=== PATIENT | female | born 1935 | race Caucasian/White ===

== ENCOUNTER 2017-08-25 19:56 | Emergency (ER) | payer MEDICAID, MEDICARE ==
[~2017-08-25] VITALS: Ht 162.6 cm; Wt 65.9 kg
[2017-08-25 20:06] VITALS: BP 149/69; TEMP 98.2
[2017-08-25] MEDS ORDERED: WALKER MC (22:10)
[2017-08-25 22:27] VITALS: PULSE 75
== END 2017-08-25 22:27 | disposition home or self-care (01) ==
LOC: COL.ER 19:56
DX: S93.401A Sprain of unspecified ligament of right ankle, initial encounter (principal); W01.0XXA Fall on same level from slipping, tripping and stumbling without subsequent striking against object, initial encounter; X50.0XXA Overexertion from strenuous movement or load, initial encounter; Y92.009 Unspecified place in unspecified non-institutional (private) residence as the place of occurrence of the external cause

== ENCOUNTER 2021-03-08 15:03 | Observation (INO) | payer MEDICARE, MEDICAID ==
[~2021-03-08] VITALS: Ht 160 cm; Wt 59.0 kg
[~2021-03-08 15:03] MED LIST: WALKER MC
[2021-03-08 15:58] LABS: BASO % 0.8 % (0.0-2.0); EOS # 0.1 (0.0-0.7); EOS % 2.5 % (0-4.0); GRAN # 3.1 (1.4-6.5); GRAN % 57.8 % (42.2-75.2); HEMATOCRIT 36.2 % (37.0-47.0); HEMOGLOBIN 11.8 g/dl (12.5-16.0); LYMPH # 1.5 (1.2-3.4); LYMPH % 28.9 % (20.0-51.0); MEAN CELL VOLUME 89 fl (80.0-100.0); MEAN CORPUSCULAR HEMOGLOBIN 29 pg (27.0-31.0); MEAN CORPUSCULAR HGB CONC 33 g/dl (33.0-37.0); MEAN PLATELET VOLUME 10.2 fl (7.4-10.4); MONO # 0.5 (0.1-0.6); MONO % 9.6 % (1.7-9.3); PLATELET COUNT 200 K/mm3 (130-400); RED BLOOD COUNT 4.07 M/mm3 (4.10-5.30); REDCELL DISTRIBUTION WIDTH-CV 13.9 % (11.5-14.5)
[2021-03-08 16:09] LABS: ALANINE AMINOTRANSFERASE 16 U/L (4-34); ALBUMIN 3.9 gm/dL (3.5-5.0); ALKALINE PHOSPHATASE 113 U/L (50-136); ANION GAP 5 mmol/L (7-16); AST,SGOT 21 U/L (15-37); BILIRUBIN,TOTAL 0.3 mg/dL (0.0-1.0); BLOOD UREA NITROGEN 14 mg/dL (7-17); CALCIUM 9.6 mg/dL (8.4-10.2); CARBON DIOXIDE 24 mmol/L (22-30); CHLORIDE 106 mmol/L (98-107); CREATININE, serum 0.54 (0.52-1.25); GLUCOSE 168 mg/dL (74-106); POTASSIUM 4.2 mmol/L (3.4-5.0); SODIUM 135 mmol/L (137-145); TOTAL PROTEIN 7.3 gm/dL (6.4-8.2)
[2021-03-08 16:21] LABS: TROPONIN-I < 0.012 ng/mL (0.000-0.035)
[2021-03-08 16:34] LABS: COLLECTION METHOD CLEAN CATCH
[2021-03-08 16:42] LABS: PH 5 (5-8); SQUAMOUS EPITHELIAL 0-2 /hpf; URINE APPEARANCE Clear; URINE BACTERIA None Seen /hpf; URINE BILIRUBIN Negative (NEGATIVE); URINE BLOOD Negative (NEGATIVE); URINE COLOR Straw; URINE GLUCOSE Negative (NEGATIVE); URINE KETONE Negative (NEGATIVE); URINE LEUKOCYTE ESTERASE Negative (NEGATIVE); URINE NITRATE Negative (NEGATIVE); URINE PROTEIN(semi-quant) Negative (NEGATIVE); URINE RBC None Seen /hpf; URINE UROBILINOGEN Negative (NEGATIVE)
[2021-03-08 17:15] LABS: PROTHROMBIN TIME 11.3 SECONDS (9.7-12.8)
[2021-03-08] MEDS ORDERED: ASPIRIN E.C. 8181 MG PO (19:37)
[2021-03-08] MEDS ORDERED: GLUCOPHAGE XR500 M1 PO (19:38)
[2021-03-08] MEDS ORDERED: MEVACOR 20M20 MG/TAB PO (19:38)
[2021-03-08 20:26] VITALS: BP 147/82; PULSE 80; TEMP 98.3
[2021-03-08 20:55] VITALS: BP 147/82; PULSE 80; TEMP 98.3
--- NOTE | 2021-03-08 21:00 | NUR ---
Admitted to medical floor from ER with blurred and double vision- daughter here with her while she gets admitted- pt denies any pain- Dr. Mcdaniels saw in ER-- has a eyepatch to wear as needed- will get MRI tomorrow. VSS. Right eye does not follow like the left eye does. Pt very pleasant, no confusion- tele on, Iv fluids of NS at 75cc/hr. Understands to call for assistance up to bathroom- bed alarm on.
[2021-03-09 01:45] VITALS: BP 167/75; PULSE 71; TEMP 98.4
[2021-03-09 05:00] VITALS: BP 157/86; PULSE 69; TEMP 98.2
--- NOTE | 2021-03-09 06:09 | NUR ---
No requests, VSS, Up to bathroom with assist every couple hours-voiding fine-- states still has double vision, npo now for MRI- patient aware.
[2021-03-09 06:22] LABS: BASO # 0.1 (0.0-0.2); BASO % 1.1 % (0.0-2.0); EOS # 0.1 (0.0-0.7); EOS % 2.6 % (0-4.0); GRAN # 2.5 (1.4-6.5); GRAN % 55.1 % (42.2-75.2); HEMOGLOBIN 10.9 g/dl (12.5-16.0); LYMPH # 1.3 (1.2-3.4); LYMPH % 29.3 % (20.0-51.0); MEAN CELL VOLUME 88 fl (80.0-100.0); MEAN CORPUSCULAR HEMOGLOBIN 29 pg (27.0-31.0); MEAN CORPUSCULAR HGB CONC 32 g/dl (33.0-37.0); MEAN PLATELET VOLUME 10.2 fl (7.4-10.4); MONO # 0.5 (0.1-0.6); MONO % 11.7 % (1.7-9.3); PLATELET COUNT 188 K/mm3 (130-400); REDCELL DISTRIBUTION WIDTH-CV 13.9 % (11.5-14.5)
[2021-03-09 06:28] LABS: HEMATOCRIT 33.6 % (37.0-47.0)
[2021-03-09 06:39] LABS: CALCIUM 8.9 mg/dL (8.4-10.2); CREATININE, serum 0.49 (0.52-1.25); POTASSIUM 3.9 mmol/L (3.4-5.0)
[2021-03-09 08:48] VITALS: BP 148/64; PULSE 68; TEMP 97.8
--- NOTE | 2021-03-09 10:34 | NUR ---
First visit from the channel cementer outsole machine. prayed with patient and her grandson. No other needs right now.
--- NOTE | 2021-03-09 11:16 | NUR ---
Assessment ocmpleted, alert/oriented ,vital signs tsable, denies pain or disomcomfort, still having visual changes/ double vision, scheduled for MRI brain today and ECHO, heart RRR/ SR on tele, lungs CTA/ no resp.difficulty, family present in the room, discussed plan of care, deny othe rneeds or concerns at thistime
[2021-03-09 11:20] VITALS: BP 133/40; PULSE 75; TEMP 98.5
[2021-03-09 13:15] LABS: IRON,SERUM 77 ug/dL (35-150)
[2021-03-09 13:25] LABS: TOTAL IRON BINDING CAPACITY 350 ug/dL (265-497)
--- NOTE | 2021-03-09 14:41 | NUR ---
SHAHEEN met with the patient and her daughter, Mitra (ph#[phone]), to discuss discharge plan. The patient lives alone in a fci complex in [place]. She was in [place] visiting and staying with her daughter Mitra. She reports independence with ADLs and has a cane and walker. The patient's PCP is Dr. Marissa Townsend in [place] and she receives her medications from [facility]. The patient does not have a DPOA-HC in EMR, but she states that she does have one completed and that the document is at home. She states that she believes she designated both of her daughters: Mitra and Natalia. Mitra was interested in obtaining a DPOA-HC form, in case they cannot get their hands on the one the patient has at home. SHAHEEN provided them with the form. Mitra reports that the plan is for the patient to come and stay with her in [place] for a few weeks before returning back to her apartment. Mitra reports that they have been trying to work on having the patient move up here with them, but that the patient really likes her independence. SHAHEEN discussed getting home health services started upon discharge. The patient and her daughter were interested in home health. SHAHEEN provided the patient with Medicare.gov's list of home health agencies that serve both [place] and [place]. The patient and Mitra plan to look over the list. SW to continue to follow. *Discharge plan: home with daughter and home health, will need to follow up on home health agency*
[2021-03-09 15:31] VITALS: BP 152/62; PULSE 75; TEMP 97.9
[2021-03-09] MEDS ORDERED: ELIQUIS 5MG PO ×2 (15:54)
[2021-03-09 20:31] VITALS: BP 129/55; PULSE 88; TEMP 98.8
--- NOTE | 2021-03-09 23:15 | NUR ---
Shift assessment completed. Patient very pleasant, A/O x 4. Patient reports still having blurred vision. Right eye does not follow directions well. Patient denies dizziness or headache. Denies N/V or SOB. VS stable. All scheduled meds given per DEC. Patient resting in bed comfortably at this time. Call light within reach. Patient denies any needs.
[2021-03-10 00:10] VITALS: BP 127/62; PULSE 85; TEMP 98.8
[2021-03-10 04:17] VITALS: BP 126/64; PULSE 74; TEMP 98.1
[2021-03-10 07:10] LABS: BASO % 0.7 % (0.0-2.0); EOS # 0.1 (0.0-0.7); EOS % 2.3 % (0-4.0); GRAN # 2.5 (1.4-6.5); GRAN % 58.3 % (42.2-75.2); HEMOGLOBIN 11.7 g/dl (12.5-16.0); LYMPH # 1.2 (1.2-3.4); LYMPH % 28.2 % (20.0-51.0); MEAN CELL VOLUME 88 fl (80.0-100.0); MEAN CORPUSCULAR HEMOGLOBIN 29 pg (27.0-31.0); MEAN CORPUSCULAR HGB CONC 33 g/dl (33.0-37.0); MEAN PLATELET VOLUME 10.2 fl (7.4-10.4); MONO # 0.4 (0.1-0.6); MONO % 10.3 % (1.7-9.3); PLATELET COUNT 198 K/mm3 (130-400); RED BLOOD COUNT 4.09 M/mm3 (4.10-5.30); REDCELL DISTRIBUTION WIDTH-CV 14.1 % (11.5-14.5)
[2021-03-10 07:25] LABS: CALCIUM 9.1 mg/dL (8.4-10.2); CREATININE, serum 0.54 (0.52-1.25)
[2021-03-10 07:34] VITALS: BP 131/73; PULSE 65; TEMP 97.7
[2021-03-10] MEDS ORDERED: GLUCOTROL 5M5 MG/TAB PO (10:14)
--- NOTE | 2021-03-10 10:45 | NUR ---
DISCONTINUED INT, REMOVED TELEMETRY FROM PATIENT. PATIENT TO DISCHARGE HOME LATER TODAY.
--- NOTE | 2021-03-10 12:59 | NUR ---
Outside Salesman attended clinical rounds with the team and patient to discharge home today with her daughter, here in [place]. SW met with patient and her daughter to follow up on home health services. Patient selected [facility]. SHAHEEN contacted Vicki at [facility] and referral/discharge orders. Vicki advised that they can accept patient for services. Discharge Plan: Home with Home Health.
--- NOTE | 2021-03-10 13:03 | NUR ---
DISCHARGE INSTRUCTIONS REVIEWED WITH PT AND FAMILY. QUESTIONS SOLICITED AND ANSWERED. PT LEFT UNIT AMBULATORY @ 1300.
== END 2021-03-10 13:00 | disposition home or self-care (01) ==
LOC: COL.ER 15:03 → MEDICAL 18:22
PROVIDERS: Nurse Practitioner Family; Physician Assistant; ADMIT Internal Medicine
DX: H53.2 Diplopia (principal); R26.81 Unsteadiness on feet; R51.9 Headache, unspecified; G58.8 Other specified mononeuropathies; M62.81 Muscle weakness (generalized); I10 Essential (primary) hypertension; E11.9 Type 2 diabetes mellitus without complications; E78.5 Hyperlipidemia, unspecified; I08.0 Rheumatic disorders of both mitral and aortic valves; I49.9 Cardiac arrhythmia, unspecified; G47.30 Sleep apnea, unspecified; R06.83 Snoring; Z91.19 Patient's noncompliance with other medical treatment and regimen; D64.9 Anemia, unspecified; Z79.82 Long term (current) use of aspirin; Z79.84 Long term (current) use of oral hypoglycemic drugs; Z79.899 Other long term (current) drug therapy
CPT/HCPCS: 99222-AI; 99232-AI; A9585; G0378; J1650; J1815; J7030; Q9967

== ENCOUNTER 2021-06-05 07:44 | Emergency (ER) | payer MEDICARE, MEDICAID ==
[~2021-06-05] VITALS: Ht 162.6 cm; Wt 61.4 kg
[~2021-06-05 07:44] MED LIST changes: +ASPIRIN E.C. 8181 MG PO; +ELIQUIS 5MG PO; +GLUCOPHAGE XR500 M1 PO; +GLUCOTROL 5M5 MG/TAB PO; +MEVACOR 20M20 MG/TAB PO
[2021-06-05 07:54] VITALS: TEMP 98.2
[2021-06-05 08:42] LABS: ALANINE AMINOTRANSFERASE 18 U/L (4-34); ALBUMIN 4.5 gm/dL (3.5-5.0); ALKALINE PHOSPHATASE 81 U/L (50-136); ANION GAP 7 mmol/L (7-16); AST,SGOT 28 U/L (15-37); BILIRUBIN,TOTAL 0.3 mg/dL (0.0-1.0); BLOOD UREA NITROGEN 17 mg/dL (7-17); CALCIUM 9.5 mg/dL (8.4-10.2); CARBON DIOXIDE 27 mmol/L (22-30); CHLORIDE 105 mmol/L (98-107); CREATININE, serum 0.57 (0.52-1.25); GLUCOSE 118 mg/dL (74-106); POTASSIUM 4.4 mmol/L (3.4-5.0); SODIUM 138 mmol/L (137-145)
[2021-06-05 08:43] LABS: BASO % 0.8 % (0.0-2.0); EOS # 0.1 (0.0-0.7); EOS % 1.9 % (0-4.0); GRAN # 3.1 (1.4-6.5); HEMATOCRIT 37.5 % (37.0-47.0); HEMOGLOBIN 12.5 g/dl (12.5-16.0); LYMPH # 1.4 (1.2-3.4); LYMPH % 26.8 % (20.0-51.0); MEAN CELL VOLUME 87 fl (80.0-100.0); MEAN CORPUSCULAR HEMOGLOBIN 29 pg (27.0-31.0); MEAN CORPUSCULAR HGB CONC 33 g/dl (33.0-37.0); MEAN PLATELET VOLUME 10.1 fl (7.4-10.4); MONO # 0.5 (0.1-0.6); MONO % 9.3 % (1.7-9.3); PLATELET COUNT 211 K/mm3 (130-400); RED BLOOD COUNT 4.29 M/mm3 (4.10-5.30); REDCELL DISTRIBUTION WIDTH-CV 13.9 % (11.5-14.5)
[2021-06-05 08:56] LABS: TROPONIN-I < 0.012 ng/mL (0.000-0.035)
[2021-06-05] MEDS ORDERED: PREDNISONE20 MG PO (09:26)
[2021-06-05 10:30] VITALS: BP 146/74; PULSE 75
== END 2021-06-05 10:30 | disposition home or self-care (01) ==
LOC: COL.ER 07:44
PROVIDERS: Student in an Organized Health Care Education/Training Program
DX: B02.9 Zoster without complications (principal); E11.42 Type 2 diabetes mellitus with diabetic polyneuropathy; I10 Essential (primary) hypertension; Z79.84 Long term (current) use of oral hypoglycemic drugs
CPT/HCPCS: J3010

== ENCOUNTER 2021-12-29 18:29 | Observation (INO) | payer MEDICARE, MEDICAID ==
[~2021-12-29] VITALS: Ht 162.6 cm; Wt 60.5 kg
[~2021-12-29 18:29] MED LIST changes: +PREDNISONE20 MG PO
[2021-12-29 18:57] LABS: BASO # 0.1 K/mm3 (0.0-0.2); BASO % 0.9 % (0.0-2.0); EOS # 0.2 K/mm3 (0.0-0.7); EOS % 3.4 % (0.0-4.0); GRAN % 53.8 % (42.2-75.2); HEMOGLOBIN 11.4 g/dl (12.5-16.0); LYMPH # 1.7 K/mm3 (1.2-3.4); LYMPH % 30.3 % (20.0-51.0); MEAN CELL VOLUME 87 fl (80.0-100.0); MEAN CORPUSCULAR HEMOGLOBIN 29 pg (27-31); MEAN CORPUSCULAR HGB CONC 33 g/dl (33.0-37.0); MEAN PLATELET VOLUME 10.1 fl (7.4-10.4); MONO # 0.6 K/mm3 (0.1-0.6); MONO % 11.4 % (1.7-9.3); PLATELET COUNT 215 K/mm3 (130-400); RED BLOOD COUNT 3.95 M/mm3 (4.10-5.30); REDCELL DISTRIBUTION WIDTH-CV 13.9 % (11.5-14.5)
[2021-12-29 18:58] LABS: HEMATOCRIT 34.2 % (37.0-47.0)
[2021-12-29 19:02] LABS: COLLECTION METHOD CLEAN CATCH
[2021-12-29 19:08] LABS: PH 6 (5-8); SQUAMOUS EPITHELIAL None Seen /hpf (0-10); URINE APPEARANCE Clear (CLEAR/HAZY); URINE BACTERIA None Seen /hpf (NONE SEEN); URINE BILIRUBIN Negative (NEGATIVE); URINE BLOOD Negative (NEGATIVE); URINE COLOR Colorless (YELLOW); URINE GLUCOSE Negative (NEGATIVE); URINE KETONE Negative (NEGATIVE); URINE LEUKOCYTE ESTERASE Negative (NEGATIVE); URINE NITRATE Negative (NEGATIVE); URINE PROTEIN(semi-quant) Negative (NEGATIVE); URINE RBC None Seen /hpf (0-2); URINE UROBILINOGEN Negative (NEGATIVE)
[2021-12-29 19:12] LABS: ALBUMIN 3.7 gm/dL (3.4-4.8); BILIRUBIN,TOTAL 0.4 mg/dL (0.2-1.2); CALCIUM 8.9 mg/dL (8.4-10.2); CREATININE, serum 0.69 mg/dL (0.57-1.11); POTASSIUM 4.2 mmol/L (3.5-4.5)
[2021-12-29 21:47] VITALS: BP 161/95; PULSE 78; TEMP 98.6
[2021-12-29] MEDS ORDERED: FOSAMAX 70MG TA70 MG PO (22:03)
--- NOTE | 2021-12-29 22:30 | NUR ---
Patient admitted to medical floor from ER- VSS,DX: near syncopal episodes, R/O TIA,s,, very pleasant, alert/oriented x4, neuros all intact, no expressive aphasia noted, Up to bathroom with stand by assist- voiding well, back to bed- bed alarm on, on fall risk-close to nsg station, did have some applesauce and pudding, blood sugar [id number] tonight before snack.Tele on- SR w/BBB. Orders for ECHO/Neurology consult in AM.
[2021-12-30] VITALS (10 sets, daily range): BP systolic 124–166; BP diastolic 6–65; PULSE 53–84; TEMP 97.8–98.4
--- NOTE | 2021-12-30 05:46 | NUR ---
Quiet night, has been sleeping/resting all night, Up to bathroom with standby assist x3, back to bed,, VSS, neuros intact- no expressive aphasia,orientated x4. Npo now for MRI this am-
--- NOTE | 2021-12-30 06:07 | NUR ---
States having a slight headache 3/10, also nausea ,,,will give Tylenol and Zofran as ordered.
[2021-12-30 06:45] LABS: CALCIUM 9.2 mg/dL (8.4-10.2); CREATININE, serum 0.67 mg/dL (0.57-1.11)
[2021-12-30 06:48] LABS: BASO % 0.7 % (0.0-2.0); EOS # 0.2 K/mm3 (0.0-0.7); EOS % 5.2 % (0.0-4.0); GRAN % 47.1 % (42.2-75.2); HEMOGLOBIN 11.6 g/dl (12.5-16.0); LYMPH # 1.5 K/mm3 (1.2-3.4); LYMPH % 35.9 % (20.0-51.0); MEAN CELL VOLUME 89 fl (80.0-100.0); MEAN CORPUSCULAR HEMOGLOBIN 29 pg (27-31); MEAN CORPUSCULAR HGB CONC 33 g/dl (33.0-37.0); MEAN PLATELET VOLUME 10.2 fl (7.4-10.4); MONO # 0.5 K/mm3 (0.1-0.6); MONO % 10.9 % (1.7-9.3); PLATELET COUNT 206 K/mm3 (130-400); RED BLOOD COUNT 3.98 M/mm3 (4.10-5.30)
[2021-12-30 07:35] LABS: HEMATOCRIT 35.3 % (37.0-47.0)
--- NOTE | 2021-12-30 08:15 | NUR ---
PATIENT CONT TO COMPLAIN OF DIZZINESS WITH TRANSFERS. PT IN WITH PATIENT THIS MORNING. ROUNDING PROVIDER REQUESTING ORTHOSTATIC VITALS BE TAKEN. NO INDICATION THAT THIS DIZZINESS IF BLOOD PRESSURE RELATED. PRESSURES AND PULSES HAD MINIMAL CHANGE WITH POSITION CHANGES.
--- NOTE | 2021-12-30 09:49 | NUR ---
Initial visit; Patient and her daughter thanked Resource Program Teacher for looking in on her and letting her know of Resource Program Teacher's availability to provide Spiritual Care or contact her Automotive Manufacturer. Li thanked Resource Program Teacher for God's blessings and keeping her in her prayers.
--- NOTE | 2021-12-30 11:10 | NUR ---
Social Work student met with patient to discuss discharge planning. Patient was absent from room at the time of intake for an MRI, so SHAHEEN silva met with the two daughters, Mitra and Natalia(ph#[phone]), who were at bedside. Patient lives in [place] with Mitra(ph#[phone]) and the daughter's , Adrián(ph#[phone]). Patient was previously seeing Dr. Regine Mclain out of [place], but is a new patient now with Dr. Lee for primary care. Patient receives her medications from [facility] with no cost difficulty. Patient does not currently utilize any durable medical equiptment or oxygen needs, but Mitra, the daughter, stated that the patient, "has been feeling a little unstable and may use her walker she has at home when they get back from the hospital." Patient is independent with her ADL's. Patient does not currently have a DPOA-HC, but the daughters stated that they were interested in taking a DPOA-HC form for when the patient gets back from the MRI. SHAHEEN student gave a form to the daughters. Discharge plan: Home via PT/OT recs
--- NOTE | 2021-12-30 16:52 | NUR ---
PATIENT DOING WELL THIS SHIFT. NO COMPLAINTS. MRI AND ECHO COMPLETED, AWAITING RESULTS. PATIENT HAS COMPLAINED OF INTERMITTENT EPISODES OF DIZZINESS WITH NO APPARENT CAUSE. BLOOD SUGARS MONITORED, NEVER LOW. ORTHOSTATIC BPS DONE WITH NO ISSUE. ABLE TO AMBULATE ON OWN WITH WALKER. IV TO RIGHT AC PATENT WITH GOOD BLOOD RETURN. CONTINENT. REGULAR DIET. TAKES MEDS WHOLE. A&O X4. VITALS WNL
--- NOTE | 2021-12-30 20:00 | NUR ---
Assessment complete. A&Ox3. Denies pain/nausea/shortness of breath. VS stable. Currently denies lightheadedness/dizziness. NC WNL. TELE reports SR. Right AC INT flushes without difficulty. Plan of care discussed for this shift to include meds/NC/calling for questions concerns. Verbalizes understanding/denies needs. Call light in reach. will monitor.
--- NOTE | 2021-12-31 00:46 | NUR ---
NC still WNL. Vitals remain stable. Denies needs. Call light in reach. Will monitor.
[2021-12-31 04:20] VITALS: BP 118/68; PULSE 81; TEMP 97.6
--- NOTE | 2021-12-31 06:25 | NUR ---
Patient had an uneventful night. Right AC INT flushes well. Currently on RA. NC WNL. Denies pain/nausea/shortness of brath. VS remained stable. TELE reporting SR. Denies current needs. Call light in reach. Will monitor.
[2021-12-31 07:48] VITALS: BP 136/71; PULSE 58; TEMP 98.4
--- NOTE | 2021-12-31 09:31 | NUR ---
Assessment completed, alert/oriented, vital signs stable, denies pain or discomfort, hgbn is stable >8, she is tolerating PO intake well, heart RRR/distal pulses are palapble, lungs CTA/ no resp.difficulty noted, abd is soft and non-tender, BS+, norma any further dark or bloody stools, helped her order breakfast, she is sitting up in bed and has taken morning meds, denies needs at this time, will cotninue to monitor
--- NOTE | 2021-12-31 09:54 | NUR ---
Assessment completed, alert/oriented, vital signs stable, denies any pain or discomfort, reports feeling improve and denies any dizziness/lightheaded/syncopal episodes overnight or this morning, she has been up to the shower with assistance from BEESWAX BLEACHER and reported doing well and feeling well, heart RRR/ SR on tele, lugns CTA/ no respd.fficulty noted, no neuro deficits noted on assessment, fsbs have been WNL, workup has been benign thus far, she reports significant anxiety surrounding her issues and reports when she starts to feel "this way" she has a panic attack, i will discuss this with the attending physician today, she is hoping to be discharge home today, denies needs at this time, will continue to monitor
[2021-12-31 11:24] VITALS: BP 137/73; PULSE 84; TEMP 98.3
--- NOTE | 2021-12-31 16:22 | NUR ---
Discharge orders discussed with the patient and daughter, instructed to follow up as scheduled, instructed to take meds as prescribed, removed IV and tele, leaving with daughter, AUTOMATED EQUIPMENT ENGINEER TECHNICIAN escorted them out the door
== END 2021-12-31 16:24 | disposition home or self-care (01) ==
LOC: COL.ER 18:29 → MEDICAL 20:25
PROVIDERS: Personal Emergency Response Attendant; Student in an Organized Health Care Education/Training Program; ADMIT Internal Medicine
DX: R53.1 Weakness (principal); G20 Parkinson's disease; R47.01 Aphasia; R42 Dizziness and giddiness; H49.21 Sixth [abducent] nerve palsy, right eye; R03.0 Elevated blood-pressure reading, without diagnosis of hypertension; E11.9 Type 2 diabetes mellitus without complications; E78.5 Hyperlipidemia, unspecified; I49.9 Cardiac arrhythmia, unspecified; G47.30 Sleep apnea, unspecified; D64.9 Anemia, unspecified; Z79.84 Long term (current) use of oral hypoglycemic drugs; Z79.899 Other long term (current) drug therapy; Z79.82 Long term (current) use of aspirin; Z79.01 Long term (current) use of anticoagulants
CPT/HCPCS: A9575; G0378; J1650; J1815; J2405

== ENCOUNTER 2022-12-05 20:20 | Emergency (ER) | payer MEDICARE, MEDICAID ==
[~2022-12-05] VITALS: Ht 160 cm; Wt 63.2 kg
[~2022-12-05 20:20] MED LIST changes: +FOSAMAX 70MG TA70 MG PO
[2022-12-05 20:26] VITALS: TEMP 99.3
[2022-12-05 21:09] LABS: BASO % 0.4 % (0.0-2.0); EOS # 0.3 K/mm3 (0.0-0.7); EOS % 3.1 % (0.0-4.0); GRAN % 66.5 % (42.2-75.2); HEMOGLOBIN 12.1 g/dl (12.5-16.0); LYMPH # 1.8 K/mm3 (1.2-3.4); LYMPH % 19.7 % (20.0-51.0); MEAN CELL VOLUME 87 fl (80.0-100.0); MEAN CORPUSCULAR HEMOGLOBIN 29 pg (27-31); MEAN CORPUSCULAR HGB CONC 33 g/dl (33.0-37.0); MEAN PLATELET VOLUME 10.2 fl (7.4-10.4); MONO # 0.9 K/mm3 (0.1-0.6); PLATELET COUNT 207 K/mm3 (130-400); RED BLOOD COUNT 4.19 M/mm3 (4.10-5.30); REDCELL DISTRIBUTION WIDTH-CV 13.6 % (11.5-14.5)
[2022-12-05 21:11] LABS: HEMATOCRIT 36.5 % (37.0-47.0)
[2022-12-05 21:23] LABS: ALBUMIN 3.7 gm/dL (3.4-4.8); BILIRUBIN,TOTAL 0.5 mg/dL (0.2-1.2); CALCIUM 9.5 mg/dL (8.4-10.2); CREATININE, serum 0.76 mg/dL (0.57-1.11); POTASSIUM 3.9 mmol/L (3.5-4.5); TOTAL PROTEIN 7.8 gm/dL (6.2-8.1)
[2022-12-05 21:24] LABS: COLLECTION METHOD CLEAN CATCH
[2022-12-05 21:44] LABS: URINE APPEARANCE Clear (CLEAR/HAZY); URINE BLOOD Negative (NEGATIVE); URINE COLOR Yellow (YELLOW); URINE GLUCOSE Negative (NEGATIVE); URINE KETONE Negative (NEGATIVE); URINE NITRATE Negative (NEGATIVE); URINE PROTEIN(semi-quant) Negative (NEGATIVE); URINE UROBILINOGEN 0.2 E.U/dL (0.2-1.0)
[2022-12-05 21:45] LABS: SQUAMOUS EPITHELIAL 0-2 /hpf (0-10); URINE BACTERIA None Seen /hpf (NONE SEEN); URINE RBC 0-2 /hpf (0-2); URINE WBC 0-2 /hpf (0-2)
[2022-12-05] MEDS ORDERED: MACROBID 1100 MG/CAP PO (21:57)
[2022-12-05] MEDS ORDERED: TESSALON P100 MG/CAP PO (21:57)
[2022-12-05 22:11] VITALS: BP 155/73; PULSE 76
== END 2022-12-05 22:13 | disposition home or self-care (01) ==
LOC: COL.ER 20:20
PROVIDERS: Physician Assistant
DX: J40 Bronchitis, not specified as acute or chronic (principal); N39.0 Urinary tract infection, site not specified; E11.9 Type 2 diabetes mellitus without complications; Z79.84 Long term (current) use of oral hypoglycemic drugs; Z20.822 Contact with and (suspected) exposure to COVID-19

== ENCOUNTER 2024-07-19 11:57 | Emergency (ER) | payer MEDICARE, MEDICAID ==
[~2024-07-19] VITALS: Ht 162.6 cm; Wt 63.6 kg
[~2024-07-19 11:57] MED LIST changes: +MACROBID 1100 MG/CAP PO; +ROXICODONE 55 MG/TAB PO; +TESSALON P100 MG/CAP PO
[2024-07-19 12:02] VITALS: TEMP 97.7
[2024-07-19 12:45] LABS: BASO # 0.1 K/mm3 (0.0-0.2); BASO % 0.9 % (0.0-2.0); EOS # 0.1 K/mm3 (0.0-0.7); EOS % 1.5 % (0.0-4.0); GRAN # 3.6 K/mm3 (1.4-6.5); GRAN % 60.7 % (42.2-75.2); HEMATOCRIT 40.7 % (37.0-47.0); HEMOGLOBIN 13.6 g/dl (12.5-16.0); LYMPH # 1.6 K/mm3 (1.2-3.4); LYMPH % 27.9 % (20.0-51.0); MEAN CELL VOLUME 91 fl (80.0-100.0); MEAN CORPUSCULAR HEMOGLOBIN 30 pg (27-31); MEAN CORPUSCULAR HGB CONC 33 g/dl (33.0-37.0); MEAN PLATELET VOLUME 10.2 fl (7.4-10.4); MONO # 0.5 K/mm3 (0.1-0.6); MONO % 8.8 % (1.7-9.3); PLATELET COUNT 208 K/mm3 (130-400); RED BLOOD COUNT 4.49 M/mm3 (4.10-5.30); REDCELL DISTRIBUTION WIDTH-CV 13.8 % (11.5-14.5)
[2024-07-19 13:03] LABS: ALANINE AMINOTRANSFERASE 19 U/L (0-55); ALBUMIN 3.8 g/dL (3.4-4.8); ALKALINE PHOSPHATASE 106 U/L (40-150); ANION GAP 9 mmol/L (7-16); AST,SGOT 20 U/L (5-34); BILIRUBIN,TOTAL 0.4 mg/dL (0.2-1.2); BLOOD UREA NITROGEN 20 mg/dL (10-20); CALCIUM 9.8 mg/dL (8.4-10.2); CHLORIDE 106 mEq/L (98-107); CREATININE, serum 0.75 mg/dL (0.57-1.11); GLUCOSE 116 mg/dL (70-99); POTASSIUM 4.2 mEq/L (3.5-4.5); SODIUM 138 mEq/L (136-145); TOTAL PROTEIN 7.5 g/dl (6.2-8.1)
[2024-07-19 13:11] LABS: TROPONIN-I < 0.010 ng/mL (0.00-0.033)
[2024-07-19 13:43] LABS: COLLECTION METHOD CLEAN CATCH
[2024-07-19 13:47] LABS: PH 5.5 (5.0-8.5); URINE APPEARANCE CLEAR (CLEAR/HAZY); URINE BLOOD NEGATIVE (NEGATIVE); URINE COLOR YELLOW (YELLOW); URINE GLUCOSE 3+ (NEGATIVE); URINE KETONE NEGATIVE (NEGATIVE); URINE NITRATE NEGATIVE (NEGATIVE); URINE PROTEIN(semi-quant) NEGATIVE (NEGATIVE); URINE UROBILINOGEN 0.2 E.U/dL (0.2-1.0)
[2024-07-19 14:16] VITALS: BP 145/75; PULSE 57
== END 2024-07-19 14:15 | disposition home or self-care (01) ==
LOC: COL.ER 11:57
PROVIDERS: Nurse Practitioner
DX: R42 Dizziness and giddiness (principal)